=== PATIENT | female | born 1980 | race Caucasian/White ===

== ENCOUNTER 2018-12-20 12:45 | Emergency (ER) | payer SELFPAY ==
[~2018-12-20] VITALS: Ht 167.6 cm; Wt 54.5 kg
[~2018-12-20 12:45] MED LIST: AMOXICILLIN 50500 MG PO; ASPIRIN 32325 MG/TAB PO; CEPHALEXIN500 M1 PO; CLINDAMYCIN300 MG PO; DOXYCYCLINE 10100 MG PO; FLEXERIL 1010 MG/TAB PO; GENTAMICIN EYE D5 ML OS; LORTAB 5/500 501 TAB PO; NAPROSYN500 MG PO; NO HOME MEDICATIONS; NORCO 325 MG-51 TAB PO; NORCO 325 MG-7.1 TAB PO; PENICILLIN250 MG PO; PERCOCET 325 MG1 TA2 PO; PREDNISONE20 MG PO; PROAIR HFA0.09 MG/AC; SEPTRA DS 8001 TAB PO; VENTOLIN0.09 MG IH
[2018-12-20 13:05] VITALS: TEMP 96.6
[2018-12-20] MEDS ORDERED: NOVLOG SQ (13:23)
[2018-12-20] MEDS ORDERED: CEPHALEXIN500 M1 PO (13:31)
[2018-12-20] MEDS ORDERED: BACTRIM DS 8001 TAB PO (13:31)
[2018-12-20 13:57] VITALS: BP 119/93; PULSE 82
== END 2018-12-20 14:01 | disposition home or self-care (01) ==
LOC: COL.ER 12:45
DX: M79.641 Pain in right hand (principal); E11.9 Type 2 diabetes mellitus without complications; J45.909 Unspecified asthma, uncomplicated; F17.210 Nicotine dependence, cigarettes, uncomplicated; Z79.4 Long term (current) use of insulin; Z91.14 Patient's other noncompliance with medication regimen

== ENCOUNTER 2020-06-11 16:44 | Emergency (ER) | payer SELFPAY ==
[~2020-06-11] VITALS: Ht 167.6 cm; Wt 59.1 kg
[~2020-06-11 16:44] MED LIST changes: +BACTRIM DS 8001 TAB PO; +NOVLOG SQ
[2020-06-11 16:49] VITALS: TEMP 98.5
[2020-06-11 17:25] VITALS: BP 142/97; PULSE 86
== END 2020-06-11 17:29 | disposition home or self-care (01) ==
LOC: COL.ER 16:44
DX: K02.9 Dental caries, unspecified (principal); F15.129 Other stimulant abuse with intoxication, unspecified; E11.9 Type 2 diabetes mellitus without complications; F17.210 Nicotine dependence, cigarettes, uncomplicated

== ENCOUNTER 2021-05-02 14:59 | Emergency (ER) | payer SELFPAY ==
[~2021-05-02] VITALS: Ht 167.6 cm; Wt 55.9 kg
[2021-05-02 16:43] VITALS: BP 132/74; PULSE 88; TEMP 97.5
== END 2021-05-02 16:44 | disposition home or self-care (01) ==
LOC: COL.ER 14:59
DX: S51.812A Laceration without foreign body of left forearm, initial encounter (principal); F17.210 Nicotine dependence, cigarettes, uncomplicated; W26.0XXA Contact with knife, initial encounter